=== PATIENT | female | born 1955 | race Caucasian/White ===

== ENCOUNTER 2018-02-11 11:30 | Emergency (ER) | payer BC ==
[2018-02-11 11:50] VITALS: BP 124/75
[2018-02-11] MEDS ORDERED: methylPREDNISolone 125 MG* 2 ML VIAL IM ONE (12:39)
--- NOTE | 2018-02-11 12:50 | UC ---
Skin Complaint HPI - HPI Summary HPI Summary: pt presents with c/o erythematous, itchy, rash that began anterior chest, and now has spread to face. Pt has been taking 50 MG PO benadryl Q4 hours X 2-3 days with no improvement. Denies any difficulty breathing, angioedema, lip or tongue swelling. Pt has had flu vaccine, shingles booster and Tdap vaccination in the last 3 weeks. - History of Current Complaint Chief Complaint: UCRash Time Seen by Provider: 02/11/18 12:27 Stated Complaint: RASH Hx Obtained From: Patient ?: No Onset/Duration: Gradual Onset, Lasting Days, Still Present Skin Exposure Onset/Duration: Days Ago Timing: Constant Onset Severity: Mild Current Severity: Moderate Pain Intensity: 2 Location: Discrete - upper chest and face, Face Character: Pruritus, Hives, Redness Aggravating Factor(s): Nothing Alleviating Factor(s): Other - had similar episode happen after having vaccination and had "shot of steroid" and symptoms improved within hours. Associated Signs & Symptoms: Positive: Rash Related History: Recent change in medication - Allergy/Home Medications Allergies/Adverse Reactions: Allergies Allergy/AdvReac Type Severity Reaction Status Date / Time Sulfa (Sulfonamide Allergy Vomiting Verified 02/11/18 11:51 Antibiotics) Home Medications: Home Medications Diphenhydramine HCl/Zinc Acet [Benadryl Itch Cooling [place]] 1 spray TOPICAL ONCE PRN 02/11/18 [History Confirmed 02/11/18] Rosuvastatin Calcium [Crestor] 10 mg PO DAILY 02/11/18 [History Confirmed ] diphenhydrAMINE HCl [Benadryl Allergy 25 MG CAP] 1 tab PO DAILY PRN 02/11/18 [ History Confirmed 02/11/18] Review of Systems Constitutional: Negative Skin: Rash Eyes: Negative ENT: Negative Respiratory: Negative Cardiovascular: Negative Gastrointestinal: Negative Genitourinary: Negative Motor: Negative Neurovascular: Negative Musculoskeletal: Negative Neurological: Negative Psychological: Negative Is Patient Immunocompromised?: No All Other Systems Reviewed And Are Negative: Yes PMH/Surg Hx/FS Hx/Imm Hx Previously Healthy: Yes Endocrine History: Thyroid Disease, Dyslipidemia - Surgical History Surgical History: Yes Surgery Procedure, Year, and Place: csection X3, 1986, 1989, 1991 , tubal , 1991. RIGHT ANKLE SURGERY, 1982, [facility]. [place] - Family History Known Family History: Positive: Cardiac Disease - Social History Occupation: Retired Lives: With Family Alcohol Use: Rare Alcohol Amount: 2 PER MONTH Substance Use Type: None Smoking Status (MU): Never Smoked Tobacco Have You Smoked in the Last Year: No - Immunization History Most Recent Influenza Vaccination: 2014 Most Recent Tetanus Shot: unknown Most Recent Pneumonia Vaccination: never Vaccination Up to Date: Yes Physical Exam Triage Information Reviewed: Yes Appearance: Well-Appearing Vital Signs: Initial Vital Signs Temp 99.1 F 02/11/18 11:45 Pulse 66 02/11/18 11:45 Resp 18 02/11/18 11:45 BP 124/75 02/11/18 11:45 Pulse Ox 97 02/11/18 11:45 Vital Signs Reviewed: Yes Eye Exam: Normal ENT Exam: Normal Dental Exam: Normal Neck exam: Normal Respiratory Exam: Normal Respiratory: Positive: Normal breath sounds, No respiratory distress Musculoskeletal Exam: Normal Neurological Exam: Normal Psychological Exam: Normal Skin: Positive: rashes - confluent urtiaria mid anterior upper chest that spreads across face. Course/Dx - Differential Diagnoses - Skin Complaint Differential Diagnoses: Allergic Reaction, Urticaria - Diagnoses Provider Diagnoses: allergic reaction. urticaria Discharge - Sign-Out/Discharge Documenting (check all that apply): Patient Departure All imaging exams completed and their final reports reviewed: No Studies - Discharge Plan Condition: Stable Disposition: HOME Patient Education Materials: General Allergic Reaction (ED) Referrals: Natalia Solomon MD [Primary Care Provider] - - Billing Disposition and Condition Condition: STABLE Disposition: Home
== END 2018-02-11 13:00 | disposition home or self-care (01) ==
LOC: UCEAST 11:30
DX: L50.9 Urticaria, unspecified (principal); T78.40XA Allergy, unspecified, initial encounter
CPT/HCPCS: 96372; 99211; G0463; J2930

== ENCOUNTER 2019-07-07 05:21 | Emergency (ER) | payer BC ==
[2019-07-07 06:00] LABS: ABS Lymphocytes 1.6 10^3/ul (1.0-4.8); ABS Monocytes 0.4 10^3/ul (0-0.8); ABS Neutrophils 2.1 10^3/ul (1.5-7.7); Eosinophil % 1.1 %; Hematocrit 38 % (35-47); Hemoglobin 13.2 g/dL (12.0-16.0); Lymphocyte % 37.8 %; Mean Corpuscular HGB Conc 35 g/dL (31-36); Mean Corpuscular Hemoglobin 31 pg (27-31); Mean Corpuscular Volume 89 fL (80-97); Mean Platelet Volume 8.3 fL (7.4-10.4); Platelet Count 217 10^3/uL (150-450); Red Blood Count 4.28 10^6 /uL (3.70-4.87); Red Cell Distribution Width 14 % (10-15); White Blood Count 4.1 10^3/uL (3.5-10.8)
[2019-07-07 06:05] LABS: INR 0.94 (0.82-1.09)
[2019-07-07 06:18] LABS: Albumin 4.1 g/dL (3.2-5.2); Albumin/Globulin Ratio 1.5 (1-3); BUN/Creatinine Ratio 25.4 (8-20); Calcium 9.2 mg/dL (8.6-10.3); EGFR Non-African American 103.3 (>60); Globulin 2.7 g/dL (2-4); Potassium 4.1 mmol/L (3.5-5.0); Total Bilirubin 0.5 mg/dL (0.2-1.0); Total Protein 6.8 g/dL (6.4-8.9)
[2019-07-07 09:09] VITALS: BP 119/73
--- NOTE | 2019-07-07 10:25 | ED ---
HPI Chest Pain - HPI Summary HPI Summary: Patient is a 63yo healthy F presenting to the ED with CC of midsternal CP radiating from the L jaw since approx 3:30am. She awoke with L sided jaw pain and noticed she was lying to that side and had pressure to her jaw from sleeping that way. She stood up and went to get some tea when she noticed the pain now radiating into the midsternal chest without radiation to the bilateral chest [place]. Denies any sweats or chills. He denies any tightness feeling in her chest or her jaw. Denies any headaches, visual changes. No hx of CAD, respiratory issues, recent illness, recent travel. Takes levothyroxine. Otherwise healthy. Chest pain resolved [employer] and she denied taking any medication at home prior to arrival. - History of Current Complaint Chief Complaint: EDChestPainROMI Time Seen by Provider: 07/07/19 06:14 Hx Obtained From: Patient Onset/Duration: Started Hours Ago Timing: Intermittent, Lasting Hours Initial Severity: Mild Current Severity: None Pain Intensity: 0 Pain Scale Used: 0-10 Numeric Chest Pain Location: Mid Sternal Chest Pain Radiates: Yes Chest Pain Radiates To:: Jaw Character: Dull/Aching Aggravating Factor(s): Nothing Alleviating Factor(s): Spontaneous Resolution Associated Signs and Symptoms: Negative: Chest Pain, Vision Changes, Anxiety, Recent Stress, Headaches, Numbness, Lightheadedness, Diaphoresis, Cough, Productive Cough, Nonproductive Cough - Risk Factors Pulmonary Embolism Risk Factors: Negative TAD Risk Factors: Negative - Additional Pertinent History Primary Care Physician: [facility] - Allergy/Home Medications Allergies/Adverse Reactions: Allergies Allergy/AdvReac Type Severity Reaction Status Date / Time Sulfa (Sulfonamide Allergy Vomiting Verified 04/18/19 08:51 Antibiotics) Home Medications: Home Medications Cholecalciferol [Vitamin D] 4,000 units PO DAILY 07/03/14 [History Confirmed 11/18] Levothyroxine TAB* [Synthroid 125 MCG TAB*] 125 mcg PO DAILY 07/03/14 [History Confirmed 07/07/19] Rosuvastatin Calcium [Crestor] 10 mg PO DAILY 02/11/18 [History Confirmed ] PMH/Surg Hx/FS Hx/Imm Hx Previously Healthy: Yes Endocrine/Hematology History: Reports: Hx Thyroid Disease - hypothyroid Denies: Hx Diabetes Cardiovascular History: Denies: Hx Congestive Heart Failure, Hx Hypertension, Hx Pacemaker/ICD, Other Cardiovascular Problems/Disorders Respiratory History: Denies: Other Respiratory Problems/Disorders GI History: Reports: Hx Diverticulosis, Other GI Disorders - DIVERTICULITIS History: Denies: Hx Dialysis, Hx Renal Disease Musculoskeletal History: Reports: Hx Bursitis - LEFT HIP Denies: Hx Rheumatoid Arthritis, Hx Osteoporosis, Other Musculoskeletal History Sensory History: Denies: Hx Contacts or Glasses, Hx Hearing Aid Opthamlomology History: Denies: Hx Contacts or Glasses Neurological History: Denies: Other Neuro Impairments/Disorders Psychiatric History: Reports: Hx Anxiety - ON MEDS Denies: Hx Panic Disorder - Surgical History Surgery Procedure, Year, and Place: csection X3, 1986, 1989, 1991 , tubal , 1991. RIGHT ANKLE SURGERY, 1982, [facility]. [place] Hx Anesthesia Reactions: No - Immunization History Hx Pertussis Vaccination: No Immunizations Up to Date: Yes Infectious Disease History: No Infectious Disease History: Denies: Traveled Outside the [place] in Last 30 Days - Family History Known Family History: Positive: Cardiac Disease - Social History Occupation: Unemployed Lives: With Family Alcohol Use: Occasionally Alcohol Amount: 2 PER MONTH Hx Substance Use: No Substance Use Type: Reports: None Hx Tobacco Use: No Smoking Status (MU): Never Smoked Tobacco Have You Smoked in the Last Year: No Review of Systems Negative: Fever, Chills, Fatigue, Skin Diaphoresis Positive: Chest Pain. Negative: Palpitations Negative: Shortness Of Breath, Cough Genitourinary: Negative Positive: no symptoms reported, see HPI Negative: Rash, Bruising Negative: Headache, Weakness, Paresthesia, Numbness, Syncope All Other Systems Reviewed And Are Negative: Yes Physical Exam Triage Information Reviewed: Yes Vital Signs On Initial Exam: Initial Vitals Temp Pulse Resp BP Pulse Ox 97.8 F 67 20 143/71 95 07/07/19 05:22 07/07/19 05:22 07/07/19 05:22 07/07/19 05:22 07/07/19 05:22 Vital Signs Reviewed: Yes Appearance: Positive: Well-Appearing, Well-Nourished Skin: Positive: Warm, Skin Color Reflects Adequate Perfusion Head/Face: Positive: Normal Head/Face Inspection Eyes: Positive: EOMI, LESLEY, Conjunctiva Clear Neck: Positive: Supple, No Lymphadenopathy Respiratory/Lung Sounds: Positive: Clear to Auscultation, Breath Sounds Present Cardiovascular: Positive: RRR, Pulses are Symmetrical in both Upper and Lower Extremities. Negative: Leg Edema Left, Leg Edema Right Musculoskeletal: Positive: Normal, Strength/ROM Intact Neurological: Positive: Speech Normal Psychiatric: Positive: Normal, Affect/Mood Appropriate AVPU Assessment: Alert - Prashanth Coma Scale Best Eye Response: 4 - Spontaneous Best Motor Response: 6 - Obeys Commands Best Verbal Response: 5 - Oriented Coma Scale Total: 15 Procedures - Sedation Patient Received Moderate/Deep Sedation with Procedure: No Diagnostics - Vital Signs Vital Signs Temp Pulse Resp BP Pulse Ox 07/07/19 09:37 98.6 F 65 16 119/73 94 07/07/19 09:06 65 21 119/73 94 07/07/19 09:00 72 96 07/07/19 08:37 61 14 108/70 95 07/07/19 08:07 65 10 108/69 95 07/07/19 08:00 63 17 94 07/07/19 07:37 70 15 110/69 94 07/07/19 07:07 65 13 103/77 93 07/07/19 07:00 67 14 92 07/07/19 06:37 61 10 121/78 94 07/07/19 06:07 62 20 125/75 93 07/07/19 06:01 17 07/07/19 05:37 70 20 127/88 96 07/07/19 05:35 68 95 07/07/19 05:22 97.8 F 67 20 143/71 95 - Laboratory Lab Results: Lab Results 07/07/19 07/07/19 07/07/19 Range/Units 05:45 05:45 05:45 WBC 4.1 (3.5-10.8) 10^3/uL RBC 4.28 (3.70-4.87) 10^6 /uL Hgb 13.2 (12.0-16.0) g/dL Hct 38 (35-47) % MCV 89 (80-97) fL MCH 31 (27-31) pg MCHC 35 (31-36) g/dL RDW 14 (10-15) % Plt Count 217 (150-450) 10^3/uL MPV 8.3 (7.4-10.4) fL Neut % (Auto) 51.0 % Lymph % (Auto) 37.8 % [place] % (Auto) 9.4 % Eos % (Auto) 1.1 % Baso % (Auto) 0.7 % Absolute Neuts (auto) 2.1 (1.5-7.7) 10^3/ul Absolute Lymphs (auto) 1.6 (1.0-4.8) 10^3/ul Absolute Monos (auto) 0.4 (0-0.8) 10^3/ul Absolute Eos (auto) 0.0 (0-0.6) 10^3/ul Absolute Basos (auto) 0.0 (0-0.2) 10^3/ul Absolute Nucleated RBC 0.0 10^3/ul Nucleated RBC % 0.0 INR (Anticoag Therapy) 0.94 (0.82-1.09) Sodium 138 (135-145) mmol/L Potassium 4.1 (3.5-5.0) mmol/L Chloride 107 (101-111) mmol/L Carbon Dioxide 25 (22-32) mmol/L Anion Gap 6 (2-11) mmol/L BUN 15 (6-24) mg/dL Creatinine 0.59 (0.51-0.95) mg/dL Est GFR ( Amer) 125.0 (>60) Est GFR (Non-Af Amer) 103.3 (>60) BUN/Creatinine Ratio 25.4 H (8-20) Glucose 102 H (70-100) mg/dL Calcium 9.2 (8.6-10.3) mg/dL Total Bilirubin 0.50 (0.2-1.0) mg/dL AST 20 (13-39) U/L ALT 18 (7-52) U/L Alkaline Phosphatase 38 (34-104) U/L Troponin I 0.00 (<0.03) ng/mL Total Protein 6.8 (6.4-8.9) g/dL Albumin 4.1 (3.2-5.2) g/dL Globulin 2.7 (2-4) g/dL Albumin/Globulin Ratio 1.5 (1-3) 07/07/19 Range/Units 08:49 WBC (3.5-10.8) 10^3/uL RBC (3.70-4.87) 10^6 /uL Hgb (12.0-16.0) g/dL Hct (35-47) % MCV (80-97) fL MCH (27-31) pg MCHC (31-36) g/dL RDW (10-15) % Plt Count (150-450) 10^3/uL MPV (7.4-10.4) fL Neut % (Auto) % Lymph % (Auto) % [place] % (Auto) % Eos % (Auto) % Baso % (Auto) % Absolute Neuts (auto) (1.5-7.7) 10^3/ul Absolute Lymphs (auto) (1.0-4.8) 10^3/ul Absolute Monos (auto) (0-0.8) 10^3/ul Absolute Eos (auto) (0-0.6) 10^3/ul Absolute Basos (auto) (0-0.2) 10^3/ul Absolute Nucleated RBC 10^3/ul Nucleated RBC % INR (Anticoag Therapy) (0.82-1.09) Sodium (135-145) mmol/L Potassium (3.5-5.0) mmol/L Chloride (101-111) mmol/L Carbon Dioxide (22-32) mmol/L Anion Gap (2-11) mmol/L BUN (6-24) mg/dL Creatinine (0.51-0.95) mg/dL Est GFR ( Amer) (>60) Est GFR (Non-Af Amer) (>60) BUN/Creatinine Ratio (8-20) Glucose (70-100) mg/dL Calcium (8.6-10.3) mg/dL Total Bilirubin (0.2-1.0) mg/dL AST (13-39) U/L ALT (7-52) U/L Alkaline Phosphatase (34-104) U/L Troponin I 0.00 (<0.03) ng/mL Total Protein (6.4-8.9) g/dL Albumin (3.2-5.2) g/dL Globulin (2-4) g/dL Albumin/Globulin Ratio (1-3) Result Diagrams: 07/07/19 05:45 07/07/19 05:45 Lab Statement: Any lab studies that have been ordered have been reviewed, and results considered in the medical decision making process. Chest Pain Course/Dx - Course Course Of Treatment: On arrival into the ED, the patient appears well. She is denying any pain at this time. She states her pain symptoms were fairly intermittent over the course of approximately 2 hours. She did not take any medication prior to arrival. She has no cardiac history. Labs obtained which are WNL including a serial troponin of 0.002. Chest x-ray showed no acute findings. During this patient's 4 hour stay in the ED, she remained asymptomatic. Heart score: low: Risk of MACE of 0.9-1.7%. Patient will f/u with PCP. Dx with angina. - Chest Pain Differential Diagnosis/HQI/PQRI: Other: - muscle strain, jaw pain, angina, chest pain - Diagnoses Provider Diagnoses: Angina at rest Discharge ED - Sign-Out/Discharge Documenting (check all that apply): Patient Departure - Discharge Plan Condition: Stable Disposition: HOME Patient Education Materials: Angina (ED) Referrals: Natalia Solomon MD [Primary Care Provider] - Additional Instructions: Please follow up with your PCP Return to the ED if you develop any worsening/changing symptoms - Billing Disposition and Condition Condition: STABLE Disposition: Home
== END 2019-07-07 09:37 | disposition home or self-care (01) ==
LOC: ED 05:21
DX: I20.9 Angina pectoris, unspecified (principal); R07.9 Chest pain, unspecified; E03.9 Hypothyroidism, unspecified; F41.9 Anxiety disorder, unspecified; Z79.890 Hormone replacement therapy; Z79.899 Other long term (current) drug therapy; Z88.2 Allergy status to sulfonamides
CPT/HCPCS: 36415; 71046; 80053; 84484; 85025; 85610; 93005; 99283